=== PATIENT | male | born 1975 | race Hispanic/Latino ===

== ENCOUNTER 2025-02-14 17:18 | Emergency (ER) | payer SELFPAY ==
[~2025-02-14] VITALS: Ht 160 cm; Wt 68.0 kg
[2025-02-14] MEDS ORDERED: DIPH,PERTUSS(ACELL),TET VAC/PF 0.5 ML VIAL IM ONE (17:30)
[2025-02-14] MEDS ORDERED: IOHEXOL 350 MG/ML 100ML INFUS..BTL IV ONE (17:30)
[2025-02-14 17:48] LABS: BASOPHILS # (AUTO) 0.04 K/uL (0.00-0.20); BASOPHILS % (AUTO) 0.3 % (0.0-5.0); EOSINOPHILS # (AUTO) 0.06 K/uL (0.00-0.70); EOSINOPHILS % (AUTO) 0.4 % (0.0-8.0); HEMATOCRIT 41.9 % (42-54); IMMATURE GRANULOCYTE ABSOLUTE 0.06 K/uL (0-1); LYMPHOCYTES # (AUTO) 2.4 K/uL (1.0-4.8); LYMPHOCYTES % (AUTO) 17.4 % (21.0-51.0); MEAN CORPUSCULAR HGB CONC 35.8 g/dL (32.0-36.0); MEAN CORPUSCULAR VOLUME 92.1 fL (79-99); MONOCYTES # (AUTO) 0.9 K/uL (0.1-1.0); MONOCYTES % (AUTO) 6.3 % (3.0-13.0); NEUTROPHILS # (AUTO) 10.2 K/uL (1.8-7.7); NEUTROPHILS % (AUTO) 75.2 % (40.0-77.0); PLATELET COUNT (AUTO) 288 K/uL (130-400); RED BLOOD CELL COUNT(AUTO) 4.55 MIL/uL (4.50-6.20); RED CELL DISTRIBUTION WIDTH 11.9 % (11.0-15.5); WHITE BLOOD COUNT (AUTO) 13.6 K/uL (4.8-10.8)
[2025-02-14 17:54] LABS: CREATININE 0.9 mg/dL (0.5-1.3); POTASSIUM 3.8 mmol/L (3.5-5.1)
[2025-02-14] MEDS: ceFAZolin SODIUM 1 GM VIAL IVPB STA (18:04)
--- NOTE | 2025-02-14 18:04 | HMCIMG ---
CT HEAD WITHOUT CONTRAST INDICATION: Trauma TECHNIQUE: Noncontrast axial helical CT images from the vertex through the skull base using 5 mm slice thickness without contrast material. CT was performed with one or more of the following dose reduction techniques: Automated exposure control, adjustment of the mA and/or kV according to patient size, or use of iterative reconstruction technique. COMPARISON: None FINDINGS: The cerebral and cerebellar hemispheres are age-appropriate in appearance. No evidence for abnormal extra-axial fluid collections or masses. The ventricles and sulci are normal in size and configuration. No evidence for intracranial parenchymal, epidural, or subdural hemorrhage, mass effect or midline shift. The siu-white matter differentiation is well preserved. No secondary evidence to suggest acute ischemia. The brainstem and cerebellum appear normal. The visualized orbits appear unremarkable. The visible paranasal sinuses and mastoid air cells are clear. The calvarium appears normal. IMPRESSION: No acute intracranial process identified.
[2025-02-14] MEDS: teTANUS/diphthERIA TOXOID [ADULT] 0.5 ML VIAL IM ONE (18:05)
--- NOTE | 2025-02-14 18:06 | HMCIMG ---
CT CERVICAL SPINE WITHOUT CONTRAST INDICATION: Neck pain after fall TECHNIQUE: Contiguous axial computed tomography imaging using 2 mm slice thickness through the cervical spine. Reconstructions in the sagittal and coronal planes. CT was performed with one or more of the following dose reduction techniques: Automated exposure control, adjustment of the mA and/or kV according to patient size, or use of iterative reconstruction technique. COMPARISON: 05/13/2010. FINDINGS: Straightening of the normal lordosis may be related to overlying muscle spasm, underlying degenerative joint disease and/or patient positioning. Vertebral bodies are normal stature without evidence for compression deformity or fracture. No evidence for subluxation. Multilevel mild cervical spondylosis. The craniocervical junction appears normal. The atlantoaxial articulation is within normal limits. The dens is intact. The pre- and paravertebral soft tissues appear unremarkable. IMPRESSION: No evidence for fracture or subluxation.
--- NOTE | 2025-02-14 18:09 | HMCIMG ---
CT ABDOMEN WITH CONTRAST. CT PELVIS WITH CONTRAST INDICATION: Penetrating abdominal wound TECHNIQUE: Routine transaxial images using 5 mm slice thickness were obtained after the intravenous infusion of 100 mL of Omnipaque 350 without adverse effects. Oral contrast was not administered. Rectal contrast was not administered. Coronal and sagittal reformatted images acquired for interpretation. CT was performed with one or more of the following dose reduction techniques: Automated exposure control, adjustment of the mA and/or kV according to patient size, or use of iterative reconstruction technique. COMPARISON: None FINDINGS: ABDOMEN: Heart size is normal. Visible lung bases are clear. The liver is normal in size and smooth in contour without lesions or biliary duct dilation. The spleen is normal in size without lesions. The gallbladder appears normal. The pancreas appears normal without pancreatic duct dilation. The adrenal glands appear normal. Both kidneys appear unremarkable. Cortical nephrograms are symmetric and normal in appearance bilaterally. No evidence for intra-abdominal free air or organized fluid collection. No retrocrural, intraabdominal, or retroperitoneal lymphadenopathy identified. No aortic aneurysmal dilation or dissection identified. Very small fat-containing nonobstructing umbilical hernia. Mild subcutaneous soft tissue swelling along the lateral right lower abdomen. PELVIS: No evidence for free air or organized pelvic fluid collection. No significant pelvic adenopathy detected. Visualized small and large bowel loops appear unremarkable. Terminal ileum appears normal. The appendix it is not well-visualized. The urinary bladder appears unremarkable. Visible osseous structures are intact. IMPRESSION: Very small fat-containing nonobstructing umbilical hernia without evidence for any acute intra-abdominal or pelvic process. Additional minor findings and pertinent negatives as reported.
--- NOTE | 2025-02-14 18:20 | ERN ---
General Chief Complaint: Laceration/Avulsion Stated Complaint: ABD LAC R/T FALL Time Seen by MD: 17:21 Source: patient History of Present Illness Initial Comments Patient is a 14-year-old male coming in to be evaluated for right lower abdominal pain. Per patient he was punctured by a foreign object in his here for further evaluation. He states that blood was squirting out decided to come in for further evaluation. Allergies: Coded Allergies: No Known Allergies (Unverified Allergy, Unknown, 02/14/25) Past Medical History Past Medical History: No Pertinent History Past Surgical History: None ROS Dictation CONSTITUTIONAL: No chills, no fever, no weakness, no diaphoresis, no malaise. HEAD/FACE: No signs of trauma. EENT: No eye pain, no blurred vision, no tearing, no double vision, no ear pain, no ear discharge, no nose pain, no nasal congestion, no throat pain, no throat swelling, no mouth pain. RESPIRATORY: No cough, no orthopnea, no SOB, no stridor, no wheezing. CARDIOVASCULAR: No chest pain, no edema, no palpitations, no syncope. GASTROINTESTINAL/ABDOMINAL: No abdominal pain, no constipation, no diarrhea, no nausea, no vomiting. GENITOURINARY: No abnormal discharge, no dysuria, no frequent urination, no hematuria. No complaints of pain in the genitals. MUSCULOSKELETAL: No back pain, no gout, no joint pain, no joint swelling, no muscle pain, no muscle stiffness, no neck pain. INTEGUMENTARY: No change in color, no change in hair/nails, no dryness, no lesion, no lumps, no rash. NEUROLOGICAL/PSYCH: No anxiety, not depressed, no emotional problem, no headache, no numbness, no pre-existing deficit, no history of seizures, no tremors, no weakness. HEMATOLOGIC/LYMPHATIC: Not anemic, no history of blood clots, no apparent bleeding, no bruising, glands not swollen. All Systems Negative, Except as Noted. Physical Exam Physical Exam Dictation VITAL SIGNS: Reviewed. GENERAL APPEARANCE: Alert, oriented x3, no acute distress, obese. HEAD AND FACE: Non-traumatic. EYES: PERRL, pink conjunctivas, eyelid no trauma, anterior chamber clear. EARS: Pinnas intact and no signs of trauma or erythema. Ear canals clear and no discharge. TMs no erythema. NOSE: No discharge, no bleeding. OROPHARYNX: Mouth normal, teeth no caries, tongue pink. Pharynx clear, no erythema. Tonsils no exudates, no abscesses noted. Mucous membrane moist. NECK: Supple, non-tender, no thyromegaly, no masses, no JVD, no bruits. BREAST: Deferred. CHEST: No tenderness, no crepitus, no paradoxical movement, no retractions. LUNGS: Clear, well-ventilated, symmetric, no rales, no wheezing, no rhonchi, no stridor, good breath sounds bilaterally. HEART: Regular rate, regular rhythm, no murmur, no gallops. VASCULAR: No peripheral edema. ABDOMEN: Soft, positive bowel sounds, nondistended, no guarding, nontender, no rebound, no masses no hepatomegaly, no splenomegaly, no Wei's sign, no og ias. RECTAL: Deferred. GENITAL: Deferred. NEUROLOGICAL: Normal speech, gross motor function intact, gross sensory function intact. MUSCULOSKELETAL: Neck nontender, full range of motion, back nontender, full range of motion. EXTREMITIES: Nontender, full range of motion. SKIN: Color pink, dry, no turgor, no rash, 1 cm lacerations right lower abdominal wall, no abrasions, no contusions. LYMPHATICS: Deferred. Results Laboratory and Microbiology Lab and Micro Result Laboratory Tests Test 02/14/25 17:17 White Blood Count 13.6 K/uL (4.8-10.8) H Red Blood Count 4.55 MIL/uL (4.50-6.20) Hemoglobin 15.0 g/dL (14.0-18.0) Hematocrit 41.9 % (42-54) L Mean Corpuscular Volume 92.1 fL (79-99) Mean Corpuscular Hemoglobin 33.0 pg (27.0-33.0) Mean Corpuscular Hemoglobin Concent 35.8 g/dL (32.0-36.0) Red Cell Distribution Width 11.9 % (11.0-15.5) Platelet Count 288 K/uL (130-400) Mean Platelet Volume 10.2 fL (7.5-10.5) Immature Granulocyte % (Auto) 0.4 % (0-1) Neutrophils (%) (Auto) 75.2 % (40.0-77.0) Lymphocytes (%) (Auto) 17.4 % (21.0-51.0) L Monocytes (%) (Auto) 6.3 % (3.0-13.0) Eosinophils (%) (Auto) 0.4 % (0.0-8.0) Basophils (%) (Auto) 0.3 % (0.0-5.0) Neutrophils # (Auto) 10.2 K/uL (1.8-7.7) H Lymphocytes # (Auto) 2.4 K/uL (1.0-4.8) Monocytes # (Auto) 0.9 K/uL (0.1-1.0) Eosinophils # (Auto) 0.06 K/uL (0.00-0.70) Basophils # (Auto) 0.04 K/uL (0.00-0.20) Absolute Immature Granulocyte (auto 0.06 K/uL (0-1) Nucleated Red Blood Cells 0.0 % (0.0-0.19) Sodium Level 134 mmol/L (136-145) L Potassium Level 3.8 mmol/L (3.5-5.1) Chloride Level 98 mmol/L (101-111) L Carbon Dioxide Level 30 mmol/L (21-32) Blood Urea Nitrogen 12 mg/dL (7-18) Creatinine 0.9 mg/dL (0.5-1.3) Glomerular Filtration Rate Calc 104 mL/min (>90) Random Glucose 99 mg/dL (70-105) Total Calcium 9.2 mg/dL (8.5-10.1) Total Creatine Kinase 479 U/L (21-232) *H Labs Reviewed?: Yes EKG/XRAY/US/CT/MRI CT Scan Comment [address] [address] IMAGING REPORT Signed PATIENT: SUSAN GARRETT MR#: [id number] : 1975 SEX: M AGE: 49 LOCATION: [facility] ORDER 47 STATUS: REG ER [facility] REPORT#: [id number] SERVICE 45 REASON: trauma ORDERING PHYSICIAN: ANNY KUMAR NP PROCEDURE: HEAD WO - CT HEAD/BRAIN W/O CONTRAST CT HEAD WITHOUT CONTRAST INDICATION: Trauma TECHNIQUE: Noncontrast axial helical CT images from the vertex through the skull base using 5 mm slice thickness without contrast material. CT was performed with one or more of the following dose reduction techniques: Automated exposure control, adjustment of the mA and/or kV according to patient size, or use of iterative reconstruction technique. COMPARISON: None FINDINGS: The cerebral and cerebellar hemispheres are age-appropriate in appearance. No evidence for abnormal extra-axial fluid collections or masses. The ventricles and sulci are normal in size and configuration. No evidence for intracranial parenchymal, epidural, or subdural hemorrhage, mass effect or midline shift. The siu-white matter differentiation is well preserved. No secondary evidence to suggest acute ischemia. The brainstem and cerebellum appear normal. The visualized orbits appear unremarkable. The visible paranasal sinuses and mastoid air cells are clear. The calvarium appears normal. IMPRESSION: No acute intracranial process identified. DICTATED BY: HERNANDO PARHAM MD DATE: 02/14/251801 ELECTRONICALLY SIGNED BY: HERNANDO PARHAM MD DATE: 02/14/251803 [place] [address] IMAGING REPORT Signed PATIENT: SUSAN GARRETT MR#: [id number] : 1975 SEX: M AGE: 49 LOCATION: [facility] ORDER 47 STATUS: [facility] REPORT#: [id number] SERVICE 45 REASON: trauma ORDERING PHYSICIAN: ANNY KUMAR NP PROCEDURE: C SPIN WO - CT CERVICAL SPINE W/O CONTRAST CT CERVICAL SPINE WITHOUT CONTRAST INDICATION: Neck pain after fall TECHNIQUE: Contiguous axial computed tomography imaging using 2 mm slice thickness through the cervical spine. Reconstructions in the sagittal and coronal planes. CT was performed with one or more of the following dose reduction techniques: Automated exposure control, adjustment of the mA and/or kV according to patient size, or use of iterative reconstruction technique. COMPARISON: 05/13/2010. FINDINGS: Straightening of the normal lordosis may be related to overlying muscle spasm, underlying degenerative joint disease and/or patient positioning. Vertebral bodies are normal stature without evidence for compression deformity or fracture. No evidence for subluxation. Multilevel mild cervical spondylosis. The craniocervical junction appears normal. The atlantoaxial articulation is within normal limits. The dens is intact. The pre- and paravertebral soft tissues appear unremarkable. IMPRESSION: No evidence for fracture or subluxation. DICTATED BY: HERNANDO PARHAM MD DATE: 02/14/251802 ELECTRONICALLY SIGNED BY: HERNANDO PARHAM MD DATE: 02/14/251805 [place] [address] [place] [address] IMAGING REPORT Signed PATIENT: SUSAN GARRETT MR#: [id number] : 1975 SEX: M AGE: 49 LOCATION: [facility] ORDER 22 STATUS: REG REPORT#: [id number] SERVICE 21 REASON: abd penetrating ORDERING PHYSICIAN: MIGUE RM MD PROCEDURE: ABD PEL W - CT ABDOMEN/PELVIS W/CONTRAST CT ABDOMEN WITH CONTRAST. CT PELVIS WITH CONTRAST INDICATION: Penetrating abdominal wound TECHNIQUE: Routine transaxial images using 5 mm slice thickness were obtained after the intravenous infusion of 100 mL of Omnipaque 350 without adverse effects. Oral contrast was not administered. Rectal contrast was not administered. Coronal and sagittal reformatted images acquired for interpretation. CT was performed with one or more of the following dose reduction techniques: Automated exposure control, adjustment of the mA and/or kV according to patient size, or use of iterative reconstruction technique. COMPARISON: None FINDINGS: ABDOMEN: Heart size is normal. Visible lung bases are clear. The liver is normal in size and smooth in contour without lesions or biliary duct dilation. The spleen is normal in size without lesions. The gallbladder appears normal. The pancreas appears normal without pancreatic duct dilation. The adrenal glands appear normal. Both kidneys appear unremarkable. Cortical nephrograms are symmetric and normal in appearance bilaterally. No evidence for intra-abdominal free air or organized fluid collection. No retrocrural, intraabdominal, or retroperitoneal lymphadenopathy identified. No aortic aneurysmal dilation or dissection identified. Very small fat-containing nonobstructing umbilical hernia. Mild subcutaneous soft tissue swelling along the lateral right lower abdomen. PELVIS: No evidence for free air or organized pelvic fluid collection. No significant pelvic adenopathy detected. Visualized small and large bowel loops appear unremarkable. Terminal ileum appears normal. The appendix it is not well-visualized. The urinary bladder appears unremarkable. Visible osseous structures are intact. IMPRESSION: Very small fat-containing nonobstructing umbilical hernia without evidence for any acute intra-abdominal or pelvic process. Additional minor findings and pertinent negatives as reported. DICTATED BY: HERNANDO PARHAM MD DATE: 02/14/251803 ELECTRONICALLY SIGNED BY: HERNANDO PARHAM MD DATE: 02/14/251808 [facility] MDM: Differential diagnosis:, laceration, trauma, Patient 49-year-old male coming in to be evaluated for right abdominal wall puncture. Per patient he was punctured by a foreign object and pushed back. CT did not disclose acute findings laboratory workup positive for elevated CK. Patient received IV fluids and patient refused repair of the abdominal wall. Laceration was 1 cm with 2 cm deep. Patient will be discharged. Did I advised patient appropriate follow up with PCP in 1-2 days and to repeat CK levels. ED Course Orders Procedure Category Date Status Time Cbc With Differential LAB 02/14/25 Complete 17:22 Creatine Kinase, Total LAB 02/14/25 Complete 17:22 Urinalysis Profile LAB 02/14/25 Logged 17:22 Basic Metabolic Panel LAB 02/14/25 Complete 17:22 Ct Abdomen/Pelvis CT 02/14/25 Resulted W/Contrast 17:22 Cefazolin Sodium 1 Gm PHA 02/14/25 Complete Vial (Ancef 1 Gm V 17:26 Iohexol (Omnipaque) PHA 02/14/25 Complete 17:30 Ct Cervical Spine W/O CT 02/14/25 Resulted Contrast 17:46 Ct Head/Brain W/O CT 02/14/25 Resulted Contrast 17:46 Tetanus,Diphtheria PHA 02/14/25 Complete Tox [Adult] (Diphther 18:00 0.9%Nacl 1000ml (Ns PHA 02/14/25 In Process 1000ml) 19:00 Current Medications Medications (Trade) Dose Ordered Sig/Krunal Route PRN Reason Start Time Stop Time Status Last Admin Dose Admin Cefazolin Sodium (ANCEF 1 gm vial) 1 gm Q8H STAT IVPB 02/14/25 17:26 02/14/25 17:32 DC 02/14/25 18:04 Diphtheria/ Tetanus/Acell Pertussis (Tdap) 0.5 ml ONCE ONCE IM 02/14/25 17:30 02/14/25 17:31 UNV Iohexol (Omnipaque) 35,000 mg STK-MED ONCE IV 02/14/25 17:30 02/14/25 17:31 DC Sodium Chloride 1,000 ml @ 0 mls/hr ONCE ONCE IV 02/14/25 19:00 02/14/25 19:01 Tetanus/ Diphtheria Toxoids Adsorbed (DiphthERIA-teTANUS TOXOID [ADULT]/ DECAVAC) 0.5 ml ONCE ONCE IM 02/14/25 18:00 02/14/25 18:01 DC 02/14/25 18:05 Vital Signs Date Time Temp Pulse Resp B/P (MAP) Pulse Ox O2 Delivery O2 Flow Rate FiO2 02/14/25 17:20 98.8 52 16 115/72 100 Room Air 0 DX & DISP Disposition: Discharge Departure Impression: Primary Impression: Laceration of abdominal wall Additional Impressions: Abdominal trauma, Elevated CK Condition: Stable Scripts Cephalexin Monohydrate (Keflex) 500 Mg Cap 1 CAP PO TID for 10 Days, #30 CAP 0 Refills Prov: MIGUE RM MD 02/14/25 Additional Instructions: FOLLOW-UP WITH PRIMARY CARE PROVIDER IN 1 TO 2 DAYS. TAKE MEDICATIONS DIRECTED HERE IN THE EMERGENCY ROOM. OKAY TO CONTINUE HOME MEDICATIONS UNLESS OTHERWISE DISCUSSED DURING YOUR VISIT IN THE EMERGENCY ROOM TODAY. RETURN TO YOUR NEAREST EMERGENCY ROOM IF SYMPTOMS WORSEN OR IF THERE IS NO IMPROVEMENT. CALL 911 IF YOU NEED IMMEDIATE ASSISTANCE. TAKE TYLENOL [id number] NEEDED AND IF NO CONTRAINDICATIONS ARE PRESENT. INCREASE ORAL HYDRATION. A WOUND CULTURE OR URINE CULTURE WAS ORDERED HERE IN THE EMERGENCY ROOM DEPARTMENT PLEASE FOLLOW-UP WITH PRIMARY CARE PROVIDER AND ADVISE THEM TO GET REPEAT PORTS FROM OUR FACILITY. IF YOU HAD ANY SIMI WRAP/SPLINTS THAT WERE APPLIED HERE, PLEASE DO NOT REMOVE THEM UNTIL YOU SEE YOUR PRIMARY CARE OR SPECIALTY. Referrals: Referrals: SELF,REFERRAL (PCP) ALFONSO BURGESS MD Time of Disposition: 18:44 MIGUE RM MD Feb 14, 2025 18:20
[2025-02-14] MEDS: 0.9%NACL 1000ML 1,000 ML IV ONE (18:40)
[2025-02-14] MEDS ORDERED: CEPH500B PO (18:45)
[2025-02-14 19:58] VITALS: BP 129/80; PULSE 55; RESP 18; TEMP 98.3; O2SAT 98
== END 2025-02-14 19:59 | disposition home or self-care (01) ==
LOC: EDH 17:18
DX: S31.113A Laceration without foreign body of abdominal wall, right lower quadrant without penetration into peritoneal cavity, initial encounter (principal); R74.8 Abnormal levels of other serum enzymes; X58.XXXA Exposure to other specified factors, initial encounter; Y93.89 Activity, other specified; Y92.89 Other specified places as the place of occurrence of the external cause; Y99.8 Other external cause status
CPT/HCPCS: 99285; 70450; 96374; 96361; 82550; 80048; 85025; 36415; 90714; 72125; 74177; 90471; J0690; J7030; Q9967

== ENCOUNTER 2025-02-15 10:58 | Emergency (ER) | payer SELFPAY ==
[~2025-02-15] VITALS: Ht 157.5 cm; Wt 65.8 kg
[~2025-02-15 10:58] MED LIST: CEPH500B PO
--- NOTE | 2025-02-15 11:15 | ERN ---
General Chief Complaint: Wound Check Stated Complaint: PAIN AND BLEEDING IN WOUND TO LOWER RIGHT SIDE Time Seen by MD: 10:59 Time Seen by Midlevel: 10:59 Source: patient History of Present Illness Initial Comments Patient is a 49-year-old male presenting to the ER for wound evaluation. Patient was seen in our emergency department yesterday after he sustained a puncture wound to the right abdominal wall. He had a CT scan of the abdomen/pelvis with contrast which did not reveal any acute intra-abdominal injury. They offered to suture the laceration yesterday but he refused and ultimately was discharged home on antibiotics. Today he states the wound continues to drain small amounts of blood and wanted to see if we could change his dressing. Patient has no other complaints at this time. He specifically denies any fever, chills, or any other symptoms. Allergies: Coded Allergies: No Known Allergies (Unverified Allergy, Unknown, 02/14/25) Home Meds Active Scripts Cephalexin Monohydrate (Keflex) 500 Mg Cap, 1 CAP PO TID for 10 Days, #30 CAP 0 Refills Prov:MIGUE RM MD 02/14/25 Past Medical History Past Medical History: No Pertinent History Past Surgical History: None ROS Dictation CONSTITUTIONAL: Negative except for HPI HEAD/FACE: Negative except for HPI EENT: Negative except for HPI RESPIRATORY: Negative except for HPI GASTROINTESTINAL/ABDOMINAL: Negative except for HPI GENITOURINARY: Negative except for HPI MUSCULOSKELETAL: Negative except for HPI INTEGUMENTARY: Negative except for HPI NEUROLOGICAL/PSYCH: Negative except for HPI HEMATOLOGIC/LYMPHATIC: Negative except for HPI All Systems Negative, Except as noted above. 13 point review of systems assessed and all negative except for above. Physical Exam Physical Exam Dictation PHYSICAL EXAM: GENERAL: alert,, awake oriented x 3 HEENT: EOMI, Sclera non icteric, moist mucosa NECK: Supple, no JVD, trachea midline LUNGS: Clear breath sounds bilaterally. No wheezes HEART: Regular rate and rhythm. Normal S1 and S2, without murmurs ABD: Abdomen soft, nontender. Bowel sounds present EXT: No clubbing or cyanosis, NEURO: Alert and oriented to person, follows commands MDM MDM: Patient is a 49-year-old male presenting to the ER for wound evaluation. Patient was seen in our emergency department yesterday after he sustained a puncture wound to the right abdominal wall. He had a CT scan of the abdomen/pelvis with contrast which did not reveal any acute intra-abdominal injury. They offered to suture the laceration yesterday but he refused and ultimately was discharged home on antibiotics. Today he states the wound continues to drain small amounts of blood and wanted to see if we could change his dressing. Patient has no other complaints at this time. He specifically denies any fever, chills, or any other symptoms. On physical examination the patient is in no acute distress. Initial vital signs are stable. Patient is afebrile and nontoxic appearing. A gauze in place to the right lateral abdominal wall. The gauze was removed and there is a 2 cm linear laceration with a small amount of blood draining. There is no surrounding erythema, induration, or drainable abscess at this time. Given that the wound has been open for over 24 hours I advised against laceration repair. However, the patient is afraid of needles and does not want a laceration repair. Patient is here for wound evaluation and for us to change his dressing. The wound was cleansed with wound cleanser and a 4 x 4 with quick clot was applied. The patient is already taking antibiotics prophylactically and was advised to continue them. Patient will be discharged home Differential diagnosis: Wound evaluation, cellulitis, abscess There are no social concerns with this patient. Prescription drug management Prescriptions will include: None Medical management and examination interpretation discussions were had by me with other qualified healthcare professionals as indicated for the patient's care. ED Course Orders Procedure Category Date Status Time *Nursing CPOE 02/15/25 Verified Communication: 11:07 Vital Signs Date Time Temp Pulse Resp B/P (MAP) Pulse Ox O2 Delivery O2 Flow Rate FiO2 02/15/25 11:01 98.2 65 18 136/67 99 Room Air DX & DISP Disposition: Discharge Departure Impression: Primary Impression: Encounter for evaluation of wound Condition: Stable Additional Instructions: Your abdominal wound does not appear to be infected at this time. However, since he refused laceration repaired yesterday you are at an increased risk for infection. Please continue the antibiotics you were prescribed. Continue with dressing changes at home. Follow up with your doctor tomorrow for repeat evaluation. Referrals: SELF,REFERRAL (PCP) Time of Disposition: 11:14 I have reviewed the case, and I agree with, Diagnosis and Plan ALFONSO IRVIN Feb 15, 2025 11:15
[2025-02-15 12:30] VITALS: BP 131/65; PULSE 60; RESP 18; TEMP 98.2; O2SAT 99
== END 2025-02-15 12:33 | disposition home or self-care (01) ==
LOC: EDH 10:58
DX: S31.139D Puncture wound of abdominal wall without foreign body, unspecified quadrant without penetration into peritoneal cavity, subsequent encounter (principal); Z79.899 Other long term (current) drug therapy; X58.XXXD Exposure to other specified factors, subsequent encounter
CPT/HCPCS: 99282